=== PATIENT | female | born 1955 | race Hispanic/Latino ===

== ENCOUNTER 2019-10-04 14:08 | Emergency (ER) | payer OTHER | END 2019-10-04 16:48 | disposition home or self-care (01) | LOC: EDH 14:08 | DX: M54.12 Radiculopathy, cervical region (principal); I10 Essential (primary) hypertension; E11.9 Type 2 diabetes mellitus without complications; Z90.49 Acquired absence of other specified parts of digestive tract; Z90.710 Acquired absence of both cervix and uterus; Z79.899 Other long term (current) drug therapy | CPT/HCPCS: 71101; 72125; 73030; 93005 ==

== ENCOUNTER → 2021-10-05 | Outpatient (CLI) | payer OTHER | END | disposition home or self-care (01) | LOC: LAB 10:00 | PROVIDERS: ATTEND Internal Medicine Gastroenterology | DX: L29.0 Pruritus ani (principal); K59.00 Constipation, unspecified; R63.4 Abnormal weight loss | CPT/HCPCS: 87507 ==